=== PATIENT | male | born 1975 | race Caucasian/White ===

== ENCOUNTER 2018-10-28 12:37 | Inpatient (IN) | payer MEDICARE, MEDICAID ==
[2018-10-28 13:55] LABS: ABS Lymphocytes 1.5 10^3/ul (1.0-4.8); ABS Monocytes 0.6 10^3/ul (0-0.8); Hematocrit 43 % (42-52); Hemoglobin 14.4 g/dL (14.0-18.0); Lymphocyte % 18.5 %; Mean Corpuscular HGB Conc 34 g/dL (31-36); Mean Corpuscular Hemoglobin 28 pg (27-31); Mean Corpuscular Volume 83 fL (80-94); Mean Platelet Volume 7.6 fL (7.4-10.4); Platelet Count 172 10^3/uL (150-450); Red Blood Count 5.19 10^6 /uL (4.18-5.48); Red Cell Distribution Width 14 % (10-15); White Blood Count 8.1 10^3/uL (3.5-10.8)
[2018-10-28 14:17] LABS: ALT 16 U/L (7-52); AST 12 U/L (13-39); Albumin 4.4 g/dL (3.2-5.2); Albumin/Globulin Ratio 2.2 (1-3); Alkaline Phosphatase 47 U/L (34-104); Anion Gap 5 mmol/L (2-11); BUN/Creatinine Ratio 17.3 (8-20); Blood Urea Nitrogen 18 mg/dL (6-24); CO2 Carbon Dioxide 28 mmol/L (22-32); Calcium 9.1 mg/dL (8.6-10.3); Chloride 108 mmol/L (101-111); EGFR African American 94.3 (>60); EGFR Non-African American 77.9 (>60); Glucose 98 mg/dL (70-100); Sodium 141 mmol/L (135-145); Total Protein 6.4 g/dL (6.4-8.9)
[2018-10-28 14:55] LABS: Acetaminophen < 15 mcg/mL; Alcohol < 10 mg/dL (<10); Salicylate < 2.50 mg/dL (<30)
[2018-10-28 14:57] LABS: TSH (Thyroid Stimulating Horm) 0.63 mcIU/mL (0.34-5.60)
--- NOTE | 2018-10-28 16:49 | ED ---
Psychiatric Complaint - HPI Summary HPI Summary: The pt is a 43 yr old male presenting to [facility] c/o suicidal thoughts with a plan. He states that he was considering doing it with the pills in his hand while sitting on a bench in a park. He thought about his brother and decided not to commit suicide by overdosing on the pills he uses for hx of schizophrenia. The pt mentions that he has a lot of thoughts," and has a lot of stressors. - History Of Current Complaint Chief Complaint: [facility] Time Seen by Provider: 10/28/18 13:10 Hx Obtained From: Patient Onset/Duration: Sudden Onset, Still Present Timing: Constant Severity Initially: Mild Severity Currently: Mild Character: Depressed Aggravating Factor(s): Nothing Alleviating Factor(s): Nothing Has Suicidal: Reports: Thoughts, With A Plan - planned to overdose on "pills" - Allergies/Home Medications Allergies/Adverse Reactions: Allergies Allergy/AdvReac Type Severity Reaction Status Date / Time Penicillins Allergy Rash And Verified 10/28/18 20:40 Itching Home Medications: Home Medications CloZAPine TAB* 400 mg PO BEDTIME 10/28/18 [History Confirmed 10/28/18] Fluoride (Sodium) [Prevident 5000 Plus] 1.1 % PO BID 10/28/18 [History Confirmed 10/28/18] PMH/Surg Hx/FS Hx/Imm Hx Endocrine/Hematology History: Denies: Hx Diabetes Cardiovascular History: Denies: Hx Hypertension Sensory History: Denies: Hx Legally Blind, Hx Deafness Opthamlomology History: Denies: Hx Legally Blind EENT History: Denies: Hx Deafness Psychiatric History: Reports: Hx Schizophrenia Denies: Hx Eating Disorder, Hx of Violent Episodes Against Others - Surgical History Surgical History: None Surgery Procedure, Year, and Place: none Infectious Disease History: No Infectious Disease History: Denies: Traveled Outside the [place] in Last 30 Days - Family History Known Family History: Negative: Renal Disease - Social History Alcohol Use: None Hx Substance Use: No Substance Use Type: Reports: None Hx Tobacco Use: No Smoking Status (MU): Never Smoked Tobacco Review of Systems Negative: Fever Positive: Depressed, Other - Positive - suicidal thoughts with plan All Other Systems Reviewed And Are Negative: Yes Physical Exam - Summary Physical Exam Summary: Appearance: Well-appearing, Well-nourished, lying in bed comfortably Skin: Warm, dry, no obvious rash Eyes: sclera anicteric, no conjunctival pallor ENT: mucous membranes moist, pharynx appears normal Neck: Supple, nontender Respiratory: Clear to auscultation, no signs of respiratory distress Cardiovascular: Normal S1, S2. No murmurs. Normal distal pulses in tibial and radial bilaterally. Abdomen: Soft, nontender, normal active bowel sounds present Musculoskeletal: Normal, Strength/ROM Intact Neurological: A&Ox3, awake and alert, mentation is normal, speech is fluent and appropriate Psychiatric: affect is normal, does not appear to be anxious or depressed Triage Information Reviewed: Yes Vital Signs On Initial Exam: Initial Vitals Temp Pulse Resp BP Pulse Ox 98.3 F 86 16 132/86 98 10/28/18 12:46 10/28/18 12:46 10/28/18 12:46 10/28/18 12:46 10/28/18 12:46 Vital Signs Reviewed: Yes Diagnostics - Vital Signs Vital Signs Temp Pulse Resp BP Pulse Ox 10/28/18 15:42 99.0 F 87 16 121/87 96 10/28/18 12:46 98.3 F 86 16 132/86 98 - Laboratory Lab Results: Lab Results 10/28/18 10/28/18 Range/Units 13:51 13:51 WBC 8.1 (3.5-10.8) 10^3/uL RBC 5.19 (4.18-5.48) 10^6 /uL Hgb 14.4 (14.0-18.0) g/dL Hct 43 (42-52) % MCV 83 (80-94) fL MCH 28 (27-31) pg MCHC 34 (31-36) g/dL RDW 14 (10-15) % Plt Count 172 (150-450) 10^3/uL MPV 7.6 (7.4-10.4) fL Neut % (Auto) 74.1 % Lymph % (Auto) 18.5 % Roosevelt % (Auto) 7.0 % Eos % (Auto) 0.0 % Baso % (Auto) 0.4 % Absolute Neuts (auto) 6.0 (1.5-7.7) 10^3/ul Absolute Lymphs (auto) 1.5 (1.0-4.8) 10^3/ul Absolute Monos (auto) 0.6 (0-0.8) 10^3/ul Absolute Eos (auto) 0.0 (0-0.6) 10^3/ul Absolute Basos (auto) 0.0 (0-0.2) 10^3/ul Absolute Nucleated RBC 0.0 10^3/ul Nucleated RBC % 0.0 Sodium 141 (135-145) mmol/L Potassium 4.0 (3.5-5.0) mmol/L Chloride 108 (101-111) mmol/L Carbon Dioxide 28 (22-32) mmol/L Anion Gap 5 (2-11) mmol/L BUN 18 (6-24) mg/dL Creatinine 1.04 (0.67-1.17) mg/dL Est GFR ( Amer) 94.3 (>60) Est GFR (Non-Af Amer) 77.9 (>60) BUN/Creatinine Ratio 17.3 (8-20) Glucose 98 (70-100) mg/dL Calcium 9.1 (8.6-10.3) mg/dL Total Bilirubin 0.40 (0.2-1.0) mg/dL AST 12 L (13-39) U/L ALT 16 (7-52) U/L Alkaline Phosphatase 47 (34-104) U/L Total Protein 6.4 (6.4-8.9) g/dL Albumin 4.4 (3.2-5.2) g/dL Globulin 2.0 (2-4) g/dL Albumin/Globulin Ratio 2.2 (1-3) TSH 0.63 (0.34-5.60) mcIU/mL Salicylates < 2.50 (<30) mg/dL Acetaminophen < 15 mcg/mL Serum Alcohol < 10 (<10) mg/dL Result Diagrams: 10/28/18 13:51 10/28/18 13:51 Lab Statement: Any lab studies that have been ordered have been reviewed, and results considered in the medical decision making process. Re-Evaluation - Re-Evaluation First Eval Re-Evaluation Time: 13:15 Comment: Patient is medically clear for MHE. Course/Dx - Course Course Of Treatment: The pt is a 43 yr old male presenting to [facility] c/o suicidal thoughts with a plan. He states that he was considering doing it with the pills in his hand while sitting on a bench in a park. He thought about his brother and decided not to commit suicide by overdosing on the pills he uses for hx of schizophrenia. The pt mentions that he has a lot of thoughts," and has a lot of stressors. The physical exam is unermarkable. Pt is medically clear at 1315. Test results normal except for AST @ 12. Toxicology is negative. The pt was diagnosed with schizophrenia and voluntarily admitted [place] [facility] per Maite Renee reporting for Dr. Maradiaga, psychiatry. The pt is stable and agreeable with this plan. - Differential Dx/Clinical Impression Provider Diagnosis: Schizophrenia - Physician Notifications Discussed Care Of Patient With: Maite Renee - mental health sat act instructor Time Discussed With Above Provider: 14:45 Instructed by Provider To: Admit As Inpatient - Maite reports that the patient is being voluntarily admitted Dr. Maradiaga with dx of schizophrenia. Discharge - Sign-Out/Discharge Documenting (check all that apply): Patient Departure - Admit Patient Received Moderate/Deep Sedation with Procedure: No - Discharge Plan Condition: Stable Disposition: ADMITTED TO [facility] - Billing Disposition and Condition Condition: STABLE Disposition: Admitted to [facility] - Attestation Statements Document Initiated by Abbyibe: Yes Documenting Scribe: Hai Mcintosh Provider For Whom Scribe is Documenting (Include Credential): Fernando Callejas MD Scribe Attestation: IHai, scribed for Fernando Callejas MD on 10/30/18 at 0522. Scribe Documentation Reviewed: Yes Provider Attestation: The documentation as recorded by the Hai guerrero accurately reflects the service I personally performed and the decisions made by me, Fernando Callejas MD Status of Scribe Document: Viewed
[2018-10-28] MEDS ORDERED: Acetaminophen TAB* 325 MG PO PRN (21:16)
[2018-10-28] MEDS ORDERED: Al Hydrox/Mg Hydrox/Simet LIQ* 30 ML UDC PO PRN (21:16)
[2018-10-29 07:20] LABS: HDL Cholesterol 41.5 mg/dL
[2018-10-29] MEDS: Vitamin THERAPEUTIC TAB PO SCH (09:56)
[2018-10-29] MEDS: clonazePAM TAB(*) 0.5 MG PO SCH (09:57)
--- NOTE | 2018-10-29 15:03 | ADMNOTE ---
Identification - Identify Employment Status: Employed Hx Psychiatric Hospitalization: Yes Prior Psychiatric Diagnosis: Schizophrenia Arrived to Hospital Via: ambulance History - Objective HPI: 43 year old partnered white male sent by [facility] program at [facility]. He had told them that he was carrying his medication bottle of clonazepam and wanted to kill himself. He has been feeling progressively overwhelmed by life situations. He has a 2 month old baby with Melissa, who he met a year ago on [employer] and who lives in [place]. He had some wish that she and the baby could join him, his brother, and his parents in their large house in [place] but he says that his mother vetoed it and even refuses to see Melissa. He reports that Melissa's parents now refuse to see him and that she had been living in a hotel room in [place] where he visited three days per week. She is now with her parents. Wei has decided to go to [employer] to study [employer] architecture drawing since he has an architecture degree from [employer]. 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 He has a 20 plus year history of schizophrenia with residual negative symptoms that led to his not being able to hold many jobs. He has improved on clozapine and takes low dose clonazepam for panic attacks. At one point Margaret Connie SCALE SHOOTER tried to lower his dose below 300 mg but he began to have auditory hallucinations again. Family history is notable for a mother with agoraphobia and depression and a brother with schizophrenia who takes clozapine. Denies substance abuse, legal history, or history. Denies having weapons in his home. Denies history of suicide attempts. Review of systems notable for panic attacks but denies obsessive thoughts, compulsive rituals, insomnia, or nightmares. Stress is that his mother will not let his partner in. He feels betrayed by his parents, complains that they will not help financially though "my father has three Porsches and he bought my mother a [place]usha [place] though she never drives it". Past Medical History: Denies history of seizures or head injuries. Overweight. Lab values normal. Exam Appearance: Well Developed/Nourished, Healthy Appearing Hygiene: Normal Grooming: Well Kept Psychomotor Activities: Normal Exhibits Abnormal Movement: No Attitude and Relatedness: Appropriate Eye Contact: Good - Speech Quality: Unpressured Latencies: Normal Quantity: Copious Patient's Decription of Mood: "Anxious" Observed Affect: Fair Affect Consistent with: Dysphoria Patient's Thought Process: Coherent Thought Content: Yes Passive Wish, Yes Suicidal Planning - had thoughts of overdose when he was feeling overwhelmed, No Homicidal Ideation, No Paranoid Ideation Experiencing Hallucinations: No, Sensorium is Clear Type of Hallucinations: Visual: No, Auditory: No, Command: No Impulse Control: Tenuous Insight and Judgement: Fair Impression - Impression Clinical Impression: Man with Schizophrenia which has been well controlled on clozapine although he has had some decline in his baseline functioning. He does well in low expressed emotion situations but is acutely caught up in a great deal of emotion from mother, Melissa, and Melissa's parents and is not able to see his daughter much. He feels overwhelmed but the history is not one of a history of suicidality. He is not acutely psychotic and does not feel hopeless; he is working on slow future plans. He denies racing thoughts. He should have a short admission to stablize him. I offered lowdose Provigil for daytime sedation but he feels as if he does not need it at this time. He will have individual and group therapy, 30 minute checks, family intervention with father (he specifically refused release for mother though I repeatedly offered to bring her into treatment). Estimated length of stay is five days. Inpatient DSM-V Dx: F20.9 Merits Inpatient Hospitalization: Yes BSU: Problem List - Patient Problems (1) Suicidal intent Current Visit: Yes Status: Acute Priority: High Code(s): R45.851 - SUICIDAL IDEATIONS SNOMED Code(s): 076272195 (2) Psychoses Current Visit: Yes Status: Chronic Priority: Medium Plan - Treatment Plan Continued Medication Management: Continue Outpt Medication Medications: Current Medications Acetaminophen (Tylenol Tab*) 650 mg PO Q4H PRN PRN Reason: PAIN or TEMP > 101 F Al Hydrox/Mg Hydrox/Simethicone (Maalox Plus*) 30 ml PO Q4H PRN PRN Reason: INDIGESTION Clonazepam (Klonopin Tab(*)) 0.5 mg PO DAILY CAMELIA Last Admin: 10/29/18 09:57 Dose: Not Given Clozapine (Clozapine Tab*) 400 mg PO BEDTIME CAMELIA Multivitamins (Theragran Tab*) 1 tab PO DAILY CAMELIA Last Admin: 10/29/18 09:56 Dose: 1 tab - Discharge Plan Discharge Plan: Outpatient Follow Up Outpatient Program: [facility]
--- NOTE | 2018-10-29 18:59 | HP ---
PSYCHIATRIC HISTORY AND PHYSICAL: DATE OF ADMISSION: 10/28/18 JUSTIFICATION FOR ADMISSION: The patient presented with acute suicidal ideation with a plan to overdose on Klonopin and background of family issues and diagnosis of chronic schizophrenia. CHIEF COMPLAINT: "I felt like taking an overdose of my Klonopin." HISTORY OF PRESENT ILLNESS: The patient is a 43-year-old partnered white male sent by the [facility] Program at [facility]. He had told them he is carrying his medication bottle of Klonopin and want to kill himself. He had similar feelings a day before, which were not as strong and spent a night with his friend, Devon. He is being progressively overwhelmed by life situations. There is a great deal of tension with his parents, and he did not want to stay there. He has a 2-month-old baby with his partner, Melissa, who he met on the [employer]. Melissa lives in [place] and has been staying in a hotel room. The patient goes there 3 days a week and works here for 4 days. He has some wishes that Melissa and the baby could join him, his brother, and his parents in a large house. They live in [place], but the patient said his mother vetoed this and refuses even to see Melissa or the baby. The patient reports that Melissa's parents are now refusing to allow him to see them or come into their house because they are angry on Wei's parents. Wei has decided to go to [employer] to study Computerized Architecture Drawing since he has an architecture degree. 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 He has a 20-year history of schizophrenia with residual negative symptoms that lead to some decline from his baseline level of functioning. 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 He has improved substantially on clozapine and with maturity and takes 400 mg of clozapine at night and takes low-dose clonazepam to prevent panic attacks. At one point, Margaret Rosales NP, was treating him and tried to lower his Clozaril and add Latuda, but when they got below 300 mg a day, he began to have auditory hallucinations again. The patient noticed that last night by accident he was not given clozapine and he feels more energy. I did manage to persuade him that this was not the time to switch his clozapine since he has been fairly stable on this dose for many years. The patient has some hope of applying for section 8 or for other housing and to live independently with Melissa and go to [employer] because he feels that he is hopeless with his parents. He feels that his father is ineffectual. He also notes that Melissa has bills to pay, and he is trying to get some money in the range of $1000 to $2000 to pay medical bills only to have his father refuse. He is bitter about this saying his father has 3 Porsches and that he bought his mother a Anusha Cay[place], even though the mother never drives. FAMILY HISTORY: Notable for mother with agoraphobia and depression and 1 brother who has schizophrenia and who takes clozapine with a more partial response. SOCIAL HISTORY: The patient denies substance abuse, legal history, or history. He denies having weapons in his home. He denies history of suicide attempts. REVIEW OF SYSTEMS: Notable for panic attacks, but he denies obsessive thoughts , compulsive rituals, insomnia, or nightmares. Major stress is that his mother will not really have anything to do with his partner. MEDICAL EXAMINATION: He is overweight. He denies acute medical complaints and just takes these medications. LABORATORY DATA: Labs including hemoglobin A1c and lipid profile were normal. A clozapine level is pending, but since he did not get his dose last night, it might not be a fully valid level as far as seeing if there is a room to adjust the dose. MENTAL STATUS EXAMINATION: He is alert, oriented x3, and cooperative with exam. Speech is mildly pressured, but interruptible. Thought is circumstantial. He is anxious with slightly blunted affect. The sensorium is clear and concentration is good. Short-term and long-term memory are grossly intact. Judgment, insight, and impulse control are fair to good. Estimated intelligence is above average. CLINICAL IMPRESSION: Clinical impression is of a man with long history of schizophrenia with some mild residual negative symptoms. It is possible in the long run that he could switch from Clozaril if he insists, even though he has not had side effects. An alternative would be to add an agent such as Latuda or Abilify to try to improve his residual negative symptoms. Right now, with motivational interviewing, he agreed to resume the clozapine and try to fix some of his psychosocial stressors including his lack of housing, relationship problems with Melissa now that she is having arguments with her parents, and his general domestic life. He can be on 30-minute checks for now. Until there is some movement in his stressors if he were immediately discharged, there would risk of recurrence of suicidal ideation with plan, and he merits an admission estimated up to 5 days to stabilize him. TREATMENT PLAN: Includes 30-minute checks, individual and group psychotherapy, family meetings. I specifically offered to meet with his mother, but he refuses to sign a release for her, but he is signing release for his father and his brother. Social work will also talk to them and possibly to his girlfriend. DIAGNOSES: Schizophrenia and adjustment disorder with anxiety and depression. [id number]/[facility] #: [id number] ROMAN
[2018-10-29] MEDS ORDERED: CloZAPine TAB* 100 MG TAB PO SCH (21:00)
[2018-10-30 09:25] VITALS: BP 92/50
[2018-10-30] MEDS: Vitamin THERAPEUTIC TAB PO SCH (09:43)
[2018-10-30] MEDS: clonazePAM TAB(*) 0.5 MG PO SCH (09:43)
[2018-10-31 12:12] LABS: Clozapine 383 ng/mL (>350); Clozapine & Norclozapine Level 645 ng/mL (>450); Norclozapine 262 ng/mL
== END 2018-10-30 13:00 | disposition home or self-care (01) | DRG 885 ==
LOC: ED 12:37 → BSU 16:21
PROVIDERS: ADMIT Psychiatry & Neurology Psychiatry; ATTEND Psychiatry & Neurology Psychiatry
DX: F20.9 Schizophrenia, unspecified (principal); R45.851 Suicidal ideations; F43.23 Adjustment disorder with mixed anxiety and depressed mood; E66.3 Overweight; Z68.27 Body mass index [BMI] 27.0-27.9, adult; Z81.8 Family history of other mental and behavioral disorders; Z88.0 Allergy status to penicillin
CPT/HCPCS: 36415; 80053; 80061; 80159; 80320; 80329; 83036; 84443; 85025; 99222; 99238; 99284; A9270-GY; G0480

== ENCOUNTER 2018-12-03 07:44 | Day surgery (SDC) | payer MEDICARE, MEDICAID ==
[~2018-12-03 07:44] MED LIST: Buffered Lidocaine 1% SYRIN* 1 ML/SYRINGE INTRADERM ONE
[2018-12-03] MEDS ORDERED: Clindamycin 900 MG/D5W BAG(*) 900 MG/50 ML BAG IVPB ONE (07:57)
[2018-12-03] MEDS: Lactated Ringers 1000 ML Bag* 1,000 ML IV SCH ×2 (08:22→12:10)
[2018-12-03] MEDS ORDERED: Midazolam* 1 MG/ML 2 ML VIAL (2 MG) ONE (09:15)
[2018-12-03] MEDS ORDERED: Lidocaine 2% PF * 5 ML VIAL ONE (09:31)
[2018-12-03] MEDS ORDERED: Propofol* 10 MG/ML 20 ML BTL ONE (09:31)
[2018-12-03] MEDS ORDERED: fentaNYL* 50 MCG/ML 2 ML VIAL (100 MCG VIAL) ONE (09:59)
[2018-12-03] MEDS ORDERED: Bupivacaine 0.5%* 50 ML MDV VIAL ONE (10:09)
[2018-12-03] MEDS ORDERED: Rocuronium* 10 MG/ML VIAL ONE (10:10)
[2018-12-03] MEDS ORDERED: Ketorolac INJ* 30 MG/ML 1 ML VIAL ONE (10:56)
[2018-12-03] MEDS ORDERED: Metoclopramide IV* 5 MG/ML 2 ML VIAL ONE (10:56)
[2018-12-03] MEDS ORDERED: Dexamethasone IV* 4 MG/ML 1 ML (4 MG) ONE (10:56)
[2018-12-03] MEDS ORDERED: Ondansetron INJ* 2 MG/ML VIAL ONE (10:56)
[2018-12-03] MEDS ORDERED: Acetaminophen TAB* 325 MG PO PRN (10:57)
[2018-12-03] MEDS ORDERED: HYDROmorphone INJ1* 1 MG/ML SYRINGE IV PRN (10:57)
[2018-12-03] MEDS ORDERED: oxyCODONE TAB* 5 MG TAB PO PRN (10:57)
[2018-12-03] MEDS ORDERED: Naloxone* 0.4 MG/ML 1 ML VIAL IV PRN (10:57)
[2018-12-03] MEDS ORDERED: DiMENhydriNATE IV* 50 MG/ML VIAL IV PUSH PRN (10:57)
[2018-12-03] MEDS ORDERED: Dexmedetomidine* 200 MCG/2 ML 2 ML VIAL ONE (11:08)
[2018-12-03] MEDS ORDERED: ROPIVACAINE 5 MG/ML 30 ML BTL (0.5%) ONE (11:08)
--- NOTE | 2018-12-03 11:56 | OP ---
Operative Report - Blank - Operative Report Date of Operation: 12/03/18 Note: PATIENT: Wei Mcadams DATE OF : 1975 DATE OF SURGERY: 12/03/2018 SURGEON: Travis Godoy MD OPTOMETRIST/PRACTICE OWNER: LEEANNA Valerio, whos assistance was necessary for positioning, retraction, help with instrumentation, and closure. ANESTHESIOLOGIST: Dr. Lawler PREOPERATIVE DIAGNOSIS: Right Achilles tendon rupture POSTOPERATIVE DIAGNOSIS: Right Achilles tendon rupture OPERATION: Right Achilles tendon repair ANESTHESIA: General IMPLANTS: none TOURNIQUET TIME: Less than 60 minutes with a well-padded thigh tourniquet at 250mmHg SPECIMENS: none ESTIMATED BLOOD LOSS: minimal COMPLICATIONS: none STATUS: Stable from the operating room to the recovery room and then home. INDICATIONS FOR PROCEDURE: Wei sustained a right Achilles tendon rupture. Both operative and non operative treatment alternatives were reviewed. Further, the nature and risks of surgery were reviewed in careful detail in the office as well as in the preoperative holding area. Our discussions regarding the risks of surgery included, but were not limited to, infection, wound problems, nerve injury, neuroma, RSD, persistent symptoms, blood clot, re-rupture or failure to heal, failure of the surgery, and even the remote chance of catastrophic complication , including loss of limb. DESCRIPTION OF PROCEDURE: The patient was seen in the preoperative holding unit and informed written consent was obtained. The appropriate extremity was marked. The patient was then brought to the operating room and carefully positioned on the operating room table. Anesthesia was induced. All bony prominences were padded with great care. A well-padded thigh tourniquet was placed. A chlorhexidine based pre- scrub was performed followed by a chloraprep prep and drape in standard sterile fashion. A surgical safety pause was then conducted in which we confirmed the appropriate patient, extremity, planned procedure, availability of equipment, indication and administration of prophylactic antibiotics, and DVT prophylaxis in the form of a compression boot on the non-surgical extremity. An Esmarch exsanguination of the extremity was performed and the tourniquet was inflated. I then began by making a 6 cm incision slightly posteromedial overlying the Achilles tendon. I carried the dissection down through the soft tissue and exposed the peritenon. I then came through this sharply in line with the Achilles. I exposed the Achilles tendon, which was completely ruptured. We irrigated out hematoma. At this point, I utilized an Allis clamp to pull the proximal segment distally and passed a malleable between the tendon and the peritenon posteriorly. This mobilized the proximal segment back to its proper location. I then passed a bent ringed forceps within the peritenon around the tendon proximally. We used a Augustine needle to pass #2 Fiberwire through the skin and then through the forceps, Achilles, and then through the other side. By pulling the forceps back out of the wound, we brought the suture out through the wound having been passed through the tendon. We repeated this two additional times, moving approximately 1 cm distally through the proximal segment. We similarly used the bent forceps to pass 3 strands of #2 Fiberwire through the distal segment. These sutures all had excellent purchase on the tendon. At this point, we placed a bump underneath the dorsum of the left foot to plantarflex the ankle. We then tied the sutures together, positioning the knot away from the skin edges. This nicely reapproximated the tendon ends with resting tension of the Achilles similar to the contralateral extremity, which had been assessed prior to prepping and draping. There was a restored Brink test. We then irrigated copiously. We closed in layers meticulously utilizing 3-0 Monocryl for the peritenon layer, 3-0 Monocryl for the subdermal layer, and 3-0 nylon for the skin. A sterile dressing was then applied followed by a splint with the ankle in resting equinus position. The patient was then awakened from anesthesia and transferred to the recovery room in stable condition. There were no complications. All needle and sponge counts were correct at the end of the case. ATTESTATION: I attest I was present and scrubbed and performed the critical portions of the procedure myself. POSTOPERATIVE PLAN: The patient will remain [id number] for two weeks and follow up in two weeks for likely suture removal and Steri-Strip application. We will then progress via my postoperative protocol.
[2018-12-03] MEDS ORDERED: HYDROmorphone INJ1* 1 MG/ML SYRINGE ONE (12:18)
[2018-12-03] MEDS ORDERED: Glycopyrrolate IV* 0.2 MG/ML 1 ML VIAL ONE (12:53)
[2018-12-03] MEDS ORDERED: Neostigmine Methylsulfate* 1 MG/ML 10 ML VIAL (1 mg/ml) ONE (12:53)
[2018-12-03] MEDS ORDERED: oxyCODONE TAB* 5 MG TAB ONE (13:45)
[2018-12-03 14:32] VITALS: BP 123/89
== END 2018-12-03 14:46 | disposition home or self-care (01) ==
LOC: OR 07:44
PROVIDERS: ATTEND Orthopaedic Surgery
DX: S86.011A Strain of right Achilles tendon, initial encounter (principal); Z87.891 Personal history of nicotine dependence; F20.9 Schizophrenia, unspecified; F41.8 Other specified anxiety disorders; V00.131A Fall from skateboard, initial encounter; Y93.51 Activity, roller skating (inline) and skateboarding; Y92.9 Unspecified place or not applicable
CPT/HCPCS: A9270-GY; C1776; J1100; J1170; J1885; J2250; J2405; J2704; J2710; J2765; J2795; J3010; J3490